=== PATIENT | male | born 1945 | race Caucasian/White ===

== ENCOUNTER 2017-11-23 08:59 | Outpatient (CLI) | payer MEDICARE, OTHER ==
[2017-11-23 09:35] LABS: eGFR (African) > 60; eGFR (Non-African) > 60
== END 2017-11-23 09:00 ==
LOC: LAB 08:59
PROVIDERS: ATTEND Family Medicine
DX: E79.0 Hyperuricemia without signs of inflammatory arthritis and tophaceous disease (principal); E78.00 Pure hypercholesterolemia, unspecified
CPT/HCPCS: 36415; 80053; 80061; 84550

== ENCOUNTER 2019-01-02 13:54 | Outpatient (CLI) | payer OTHER | END 2019-01-02 13:56 | LOC: LAB 13:54 | PROVIDERS: ATTEND Family Medicine | DX: B35.1 Tinea unguium (principal); M10.9 Gout, unspecified; E78.5 Hyperlipidemia, unspecified | CPT/HCPCS: 36415; 80053; 80061; 82248; 84550 ==

== ENCOUNTER 2019-03-07 08:16 | Outpatient (CLI) | payer OTHER ==
[2019-03-08 07:21] LABS: TOTAL PROTEIN SCANNED REPORT
== END 2019-03-07 08:18 ==
LOC: LAB 08:16
PROVIDERS: ATTEND Podiatrist Foot & Ankle Surgery
DX: B35.1 Tinea unguium (principal)
CPT/HCPCS: 36415; 80076